=== PATIENT | male | born 1980 | race Caucasian/White ===

== ENCOUNTER 2024-05-10 20:51 | Emergency (ER) | payer SELFPAY ==
[~2024-05-10] VITALS: Ht 177.8 cm; Wt 75.0 kg
[2024-05-10 21:04] VITALS: BP 112/78; PULSE 108; RESP 14; TEMP 98.6; O2SAT 98
== END 2024-05-10 22:57 | disposition left against medical advice (07) ==
LOC: ER 20:51
DX: Z04.3 Encounter for examination and observation following other accident (principal); Z53.21 Procedure and treatment not carried out due to patient leaving prior to being seen by health care provider